=== PATIENT | male | born 1955 | race Caucasian/White ===

== ENCOUNTER 2020-09-22 16:51 | Emergency (ER) | payer MEDICARE ==
--- NOTE | 2020-09-22 17:44 | EDM.PDOC ---
ED HPI GENERAL MEDICAL PROBLEM - General Chief Complaint: Genitourinary Problem Stated Complaint: POSSIBLY KIDNEY STONES Time Seen by Provider: 09/22/20 17:43 Source of Information: Reports: Patient, RN History Limitations: Reports: No Limitations - History of Present Illness INITIAL COMMENTS - FREE TEXT/NARRATIVE: 64 year old male presenting with right flank and abdominal pain. The patient reports sudden onset of right flank pain around 2 pm this afternoon. He reports that the pain is severe and constant. he states the pain feels similar to when he had a kidney stone a few months ago on the left side. He reports some dysuria and difficulty urinating since this started. He also reports some episodes of sweats. Denies associated fever, chills, nausea, vomiting. He was able to pass the previous stone without intervention. He tried a hydrocodone prior to arrival without relief. right flank Pain Score (Numeric/FACES): 10 - Related Data Allergies Allergy/AdvReac Type Severity Reaction Status Date / Time No Known Allergies Allergy Verified 09/22/20 17:32 Home Meds: Home Meds Tamsulosin HCl [Flomax] 0.4 mg PO DAILY #10 capsule 09/22/20 [Rx] oxyCODONE HCl/Acetaminophen [Percocet 5-325 mg Tablet] 1 - 2 each PO Q6H PRN #20 tablet 09/22/20 [Rx] Past Medical History - Past Health History Medical/Surgical History: Denies Medical/Surgical History Genitourinary History: Reports: Renal Calculus Social & Family History - Family History Family Medical History: No Pertinent Family History - Tobacco Use Tobacco Use Status *Q: Never Tobacco User - Recreational Drug Use Recreational Drug Use: No ED ROS GENERAL - Review of Systems Review Of Systems: Comprehensive ROS is negative, except as noted in HPI. ED EXAM, RENAL/ - Physical Exam Exam: See Below Exam Limited By: No Limitations General Appearance: Alert, Moderate Distress (due to right flank pain) Head: Atraumatic, Normocephalic Neck: Full Range of Motion Respiratory/Chest: No Respiratory Distress, Lungs Clear, Normal Breath Sounds, No Accessory Muscle Use Cardiovascular: Regular Rate, Rhythm GI/Abdominal: Soft, Non-Tender, No Distention Back Exam: Normal Inspection, Full Range of Motion. No: CVA Tenderness (R), CVA Tenderness (L) Extremities: Normal Range of Motion Neurological: Alert, Oriented, CN II-XII Intact, Normal Cognition, No Motor/Sensory Deficits Psychiatric: Normal Affect, Normal Mood Skin Exam: Warm, Dry, Normal Color, No Rash Course - Vital Signs Last Recorded V/S: Last Vital Signs Temp 95.8 F L 09/22/20 17:43 Pulse 85 09/22/20 17:43 Resp 18 09/22/20 17:43 BP 156/98 H 09/22/20 17:43 Pulse Ox 98 09/22/20 17:43 - Orders/Labs/Meds Labs: Laboratory Tests 09/22/20 09/22/20 09/22/20 Range/Units 17:48 17:59 17:59 WBC 10.1 (4.5-11.0) K/uL RBC 5.40 (4.30-5.90) M/uL Hgb 15.8 H (12.0-15.0) g/dL Hct 46.2 (40.0-54.0) % MCV 86 (80-98) fL MCH 29 (27-31) pg MCHC 34 (32-36) % Plt Count 219 (150-400) K/uL Neut % (Auto) 86.2 H (36-66) % Lymph % (Auto) 8.6 L (24-44) % [place] % (Auto) 4.4 (2-6) % Eos % (Auto) 0.4 L (2-4) % Baso % (Auto) 0.4 (0-1) % Sodium 140 (140-148) mmol/L Potassium 4.1 (3.6-5.2) mmol/L Chloride 102 (100-108) mmol/L Carbon Dioxide 26 (21-32) mmol/L Anion Gap 12.2 (5.0-14.0) mmol/L BUN 21 H (7-18) mg/dL Creatinine 1.9 H (0.8-1.3) mg/dL Est Cr Clr Drug Dosing 40.73 mL/min Estimated GFR (MDRD) 36 L (>60) Glucose 154 H (74-106) mg/dL Calcium 9.0 (8.5-10.1) mg/dL Urine Color Yellow (YELLOW) Urine Appearance Cloudy A (CLEAR) Urine pH 6.0 (5.0-8.0) Ur Specific [place] >= 1.030 (1.008-1.030) Urine Protein 100 H (NEGATIVE) mg/dL Urine Glucose (UA) Negative (NEGATIVE) mg/dL Urine Ketones 15 H (NEGATIVE) mg/dL Urine Occult Blood Large H (NEGATIVE) Urine Nitrite Negative (NEGATIVE) Urine Bilirubin Negative (NEGATIVE) Urine Urobilinogen 0.2 (0.2-1.0) EU/dL Ur Leukocyte Esterase Negative (NEGATIVE) Urine RBC 75-100 H (0-5) Urine WBC 0-5 (0-5) Ur Epithelial Cells Rare Amorphous Sediment Few Urine Bacteria Moderate Urine Mucus Not seen Urine Other See note Meds: Medications Discontinued Medications Generic Name Dose Route Start Last Admin Trade Name Freq PRN Reason Stop Dose Admin Hydromorphone HCl 0.5 mg 09/22/20 17:48 09/22/20 18:00 Hydromorphone 0.5 Mg/0.5 Ml Syringe IVPUSH 09/22/20 17:49 0.5 mg ONETIME ONE Administration Sodium Chloride 1,000 mls @ 1,000 mls/hr 09/22/20 18:00 09/22/20 17:59 Normal Saline IV 1,000 mls/hr ASDIRECTED SHALONDA Administration Ketorolac Tromethamine 30 mg 09/22/20 17:47 09/22/20 18:02 Ketorolac 30 Mg/Ml Sdv IVPUSH 09/22/20 17:48 30 mg ONETIME ONE Administration Departure - Departure Time of Disposition: 19:08 Disposition: Home, Self-Care 01 Condition: Good Clinical Impression: Renal colic on right side, Kidney stone - Discharge Information Prescriptions: Tamsulosin HCl [Flomax] 0.4 mg PO DAILY #10 capsule oxyCODONE HCl/Acetaminophen [Percocet 5-325 mg Tablet] 1 - 2 each PO Q6H PRN #20 tablet PRN Reason: Pain (Severe 7-10) Instructions: Kidney Stones, Renal Colic Referrals: PCP,None [Primary Care Provider] - Forms: ED Department Discharge Additional Instructions: Take the medications as prescribed. Return to the Emergency Department if your pain is not controlled, you develop a fever, or you are vomiting and can't hold anything down. Strain your urine. Follow up with your provider on Friday or Friday to have your creatinine rechecked as it was slightly elevated today at 1.9. Sepsis Event Note (ED) - Evaluation Sepsis Screening Result: No Definite Risk - Focused Exam Vital Signs: Vital Signs Temp Pulse Resp BP Pulse Ox 09/22/20 17:43 95.8 F L 85 18 156/98 H 98 09/22/20 17:32 95.8 F L 85 18 156/98 H 98 - Problem List Review Problem List Initiated/Reviewed/Updated: Yes - Assessment/Plan Assessment:: This is a 64 year old male presenting with right flank pain. He has a history of kidney stones and this feels similar and todays present seems most consistent with a urinary tract stone. Urinalysis today shows RBCs, but no evidence of infections. Labs are unremarkable aside from a creatinine of 1.9 - patient reports a baseline of 1.4-1.5. He was treated with IVF, Toradol, and dilaudid with improvement of his symptoms. We discussed the risks and benefits of CT scan to diagnose stone. Given his history of previous stones and today's presentation consistent with a stone, we opted to forego CT scan today and will just treat for kidney stone. I have low suspicion for other intra-abdominal pathology such as appendicitis or diverticulitis and do not feel a CT scan is necessary at this time. If the stone does not pass or if his symptoms change, he may require a CT to localize the stone and determine the size of the stone or to rule out other causes of pain. His pain is controlled at this time and he has a benign abdominal exam. he is appropriate for outpatient management with pain control and flomax. He will strain his urine. he needs follow up in 2-3 days with PCP to have his creatinine rechecked. He will return to the ED for uncontrolled pain, vomiting, fever, or other concerning symptoms.
[2020-09-22] MEDS ORDERED: Ketorolac 30 MG/ML SDV IVPUSH ONE (17:47)
[2020-09-22] MEDS ORDERED: HYDROmorphone 0.5 MG/0.5 ML Syringe IVPUSH ONE (17:48)
[2020-09-22] MEDS ORDERED: Sodium Chloride 0.9% 1,000 ML IV SCH (18:00)
== END 2020-09-22 19:17 | disposition home or self-care (01) ==
LOC: JP.ED 16:51
DX: N20.0 Calculus of kidney (principal)
CPT/HCPCS: 36415; 80048; 81001; 85025; 96374; 96375; 99284; J1170; J1885; J7030